=== PATIENT | male | born 1990 | race Two or more races ===

== ENCOUNTER 2025-03-22 07:53 | Emergency (ER) | payer SELFPAY ==
[~2025-03-22] VITALS: Ht 182.9 cm; Wt 95.3 kg
[2025-03-22 08:02] VITALS: BP 122/66
[2025-03-22] MEDS ORDERED: PRED50TA PO (08:46)
[2025-03-22] MEDS ORDERED: CLOT15CR27 TP (08:46)
[2025-03-22 09:01] LABS: PLATELET COUNT (AUTO) 302 K/uL (152-348); RED BLOOD CELL COUNT(AUTO) 4.68 MIL/uL (4.06-5.63); RED CELL DISTRIBUTION WIDTH 12.9 % (12.1-16.2); WHITE BLOOD COUNT (AUTO) 12.8 K/uL (3.6-10.2)
[2025-03-22 09:07] LABS: *CLARITY,URINE CLEAR (CLEAR); *COLOR,URINE YELLOW (YELLOW); *KETONES,URINE TRACE (NEGATIVE); *PROTEIN,URINE 2+ (NEGATIVE); *UROBILINOGEN,URINE 0.2 E.U./dl (NORMAL); LEUKOCYTE ESTERASE ,URINE NEGATIVE (NEGATIVE); NITRITE, URINE NEGATIVE (NEGATIVE); UGLUCOSE NEGATIVE (NEGATIVE)
[2025-03-22 09:12] LABS: CREATININE 1.2 mg/dL (0.6-1.3); SODIUM SERUM 139.0 mmol/L (136-145); UREA NITROGEN, BLOOD 11.0 mg/dL (7-18)
[2025-03-22 09:13] LABS: *BILIRUBIN,URIN 1+ (NEGATIVE); *BLOOD, URINE TRACE (NEGATIVE)
[2025-03-22 09:17] LABS: ASPARTATE AMINOTRANSFERASE 34.0 U/L (15-37); TOTAL PROTEIN, SERUM 8.4 g/dL (6.4-8.2)
[2025-03-22 09:28] LABS: SQUAMOUS EPITHELIAL CELL,UR FEW /HPF (NONE SEEN)
[2025-03-22 10:33] VITALS: BP 122/66; TEMP 98; O2SAT 99
== END 2025-03-22 10:34 | disposition home or self-care (01) ==
LOC: ER 07:53
DX: B34.9 Viral infection, unspecified (principal); L42 Pityriasis rosea; A90 Dengue fever [classical dengue]; L29.9 Pruritus, unspecified; Z79.52 Long term (current) use of systemic steroids; Z88.0 Allergy status to penicillin; Z20.822 Contact with and (suspected) exposure to COVID-19
CPT/HCPCS: 36415; 83690; 85025; 86403; 87070; 87086; A4606; A4663